=== PATIENT | male | born 2000 | race Caucasian/White ===

== ENCOUNTER 2019-07-01 19:47 | Emergency (ER) | payer BC ==
[2019-07-01] MEDS ORDERED: Aspirin 81 MG Tab.Chew PO ONE (20:18)
[2019-07-01] MEDS ORDERED: Albuterol/Ipratropium 3.0-0.5 MG/3 ML Neb Soln NEB ONE (20:18)
--- NOTE | 2019-07-01 20:24 | EDM.PDOC ---
ED HPI GENERAL MEDICAL PROBLEM - General Chief Complaint: Chest Pain Stated Complaint: LEFT SIDE PAIN/CONGESTION Time Seen by Provider: 07/01/19 19:55 Source of Information: Reports: Patient History Limitations: Reports: No Limitations - History of Present Illness INITIAL COMMENTS - FREE TEXT/NARRATIVE: The patient presents with left sided chest pain. This started about 2 hours ago. He was running a piece of equipment and was sabina around a lot. He says he is also short of breath. It hurts when he takes a deep breath. He has no fever, chills or cough. He has no abdominal pain, nausea or vomiting. He has no history of DVT or PE. He does have a history of asthma and he felt like he was wheezing tonight. Onset: Sudden Duration: Hour(s): (2) Location: Reports: Chest Quality: Reports: Sharp Severity: Moderate Improves with: Reports: Immobilization Worsens with: Reports: Breathing Context: Reports: Trauma (He was working wtih a piece of equipment that was jarring him around) Associated Symptoms: Reports: Chest Pain, Shortness of Breath. Denies: Cough, Fever/Chills, Headaches, Nausea/Vomiting Left Chest Pain Score (Numeric/FACES): 7 - Related Data Allergies Allergy/AdvReac Type Severity Reaction Status Date / Time nut - unspecified Allergy Airway Verified 07/01/19 19:59 Tightness Home Meds: Home Meds Cetirizine [ZyrTEC] 10 mg PO DAILY 07/01/19 [History] Past Medical History - Past Health History Medical/Surgical History: Denies Medical/Surgical History Social & Family History - Tobacco Use Smoking Status *Q: Never Smoker - Recreational Drug Use Recreational Drug Use: No ED ROS GENERAL - Review of Systems Review Of Systems: See Below Constitutional: Reports: No Symptoms HEENT: Reports: No Symptoms Respiratory: Reports: Shortness of Breath Cardiovascular: Reports: Chest Pain Endocrine: Reports: No Symptoms GI/Abdominal: Reports: No Symptoms : Reports: No Symptoms Musculoskeletal: Reports: No Symptoms Skin: Reports: No Symptoms ED EXAM, GENERAL - Physical Exam Exam: See Below Exam Limited By: No Limitations General Appearance: Alert, No Apparent Distress Ears: Normal External Exam Nose: Normal Inspection Head: Atraumatic, Normocephalic Neck: Normal Inspection Respiratory/Chest: No Respiratory Distress, Lungs Clear, Normal Breath Sounds Cardiovascular: Regular Rate, Rhythm, No Edema, No Murmur, Other (Pain upon palpation to the left chest) GI/Abdominal: Soft, Non-Tender, No Organomegaly, No Mass Back Exam: Normal Inspection Extremities: Normal Inspection Neurological: Alert, Oriented, No Motor/Sensory Deficits Course - Vital Signs Last Recorded V/S: Last Vital Signs Temp 98.5 F 07/01/19 19:59 Pulse 63 07/01/19 19:59 Resp 22 H 07/01/19 19:59 BP 143/82 H 07/01/19 19:59 Pulse Ox 100 07/01/19 20:18 - Orders/Labs/Meds Orders: Active Orders 24 hr Category Date Time Status Cardiac Monitoring [RC] . DIRECTED Care 07/01/19 20:17 Active EKG Documentation Completion [RC] STAT Care 07/01/19 20:18 Active RT Aerosol Therapy [RC] ASDIRECTED Care 07/01/19 20:18 Active Chest 2V [CR] Stat Exams 07/01/19 20:18 Taken Labs: Laboratory Tests 07/01/19 07/01/19 07/01/19 Range/Units 20:32 20:32 20:32 WBC 9.23 H (4.23-9.07) K/mm3 RBC 4.98 (4.63-6.08) M/mm3 Hgb 14.4 (13.7-17.5) gm/dl Hct 40.6 (40.1-51.0) % MCV 81.5 (79.0-92.2) fl MCH 28.9 (25.7-32.2) pg MCHC 35.5 (32.2-35.5) g/dl RDW Std Deviation 35.6 (35.1-43.9) fL Plt Count 246 (163-337) K/mm3 MPV 10.8 (9.4-12.3) fl Neut % (Auto) 66.8 (34.0-67.9) % Lymph % (Auto) 20.0 L (21.8-53.1) % Gregg % (Auto) 8.5 (5.3-12.2) % Eos % (Auto) 3.9 (0.8-7.0) Baso % (Auto) 0.7 (0.1-1.2) % Neut # (Auto) 6.17 H (1.78-5.38) K/mm3 Lymph # (Auto) 1.85 (1.32-3.57) K/mm3 Gregg # (Auto) 0.78 (0.30-0.82) K/mm3 Eos # (Auto) 0.36 (0.04-0.54) K/mm3 Baso # (Auto) 0.06 (0.01-0.08) K/mm3 D-Dimer, Quantitative < 0.19 L (0.19-0.50) mg/L Sodium 139 (136-145) mEq/L Potassium 3.8 (3.5-5.1) mEq/L Chloride 104 (98-107) mEq/L Carbon Dioxide 25 (21-32) mEq/L Anion Gap 13.8 (5-15) BUN 16 (7-18) mg/dL Creatinine 1.2 (0.7-1.3) mg/dL Est Cr Clr Drug Dosing 105.45 mL/min Estimated GFR (MDRD) > 60 (>60) mL/min BUN/Creatinine Ratio 13.3 L (14-18) Glucose 90 (74-106) mg/dL Calcium 9.9 (8.5-10.1) mg/dL Total Bilirubin 0.7 (0.2-1.0) mg/dL AST 23 (15-37) U/L ALT 37 (16-63) U/L Alkaline Phosphatase 63 (46-116) U/L Troponin I < 0.017 (0.00-0.056) ng/mL Total Protein 8.1 (6.4-8.2) g/dl Albumin 4.5 (3.4-5.0) g/dl Globulin 3.6 gm/dL Albumin/Globulin Ratio 1.3 (1-2) Meds: Medications Discontinued Medications Generic Name Dose Route Start Last Admin Trade Name Freq PRN Reason Stop Dose Admin Albuterol/Ipratropium 3 ml 07/01/19 20:18 07/01/19 20:42 Duoneb 3.0-0.5 Mg/3 Ml NEB 07/01/19 20:19 3 ml ONETIME ONE Administration Aspirin 324 mg 07/01/19 20:18 07/01/19 20:35 Aspirin PO 07/01/19 20:19 324 mg ONETIME ONE Administration - Re-Assessments/Exams Free Text/Narrative Re-Assessment/Exam: 07/01/19 20:24 I ordered an EKG, CXR, labs and a duoneb. 07/01/19 21:25 His EKG shows a NSR with no acute changes. His CXR looks good. His CBC and CMP look good. His troponin is negative. His D-dimer is negative. He says the duoneb did help some. I feel he does have pleurisy. I will have him take some antiinflammatories like motrin or aleve for the next week. Departure - Departure Time of Disposition: 21:30 Disposition: Home, Self-Care 01 Condition: Good Clinical Impression: Pleurisy Referrals: PCP,Not In Area [Primary Care Provider] - Ceferino Calabrese PA-C [Physician Account Installation Specialist] - 1 Week Forms: ED Department Discharge Additional Instructions: Take motrin or aleve for the pain. Please return if you are worse. - My Orders Last 24 Hours: My Active Orders 07/01/19 20:17 Cardiac Monitoring [RC] . DIRECTED 07/01/19 20:18 EKG Documentation Completion [RC] STAT RT Aerosol Therapy [RC] ASDIRECTED Chest 2V [CR] Stat - Assessment/Plan Last 24 Hours: My Active Orders 07/01/19 20:17 Cardiac Monitoring [RC] . DIRECTED 07/01/19 20:18 EKG Documentation Completion [RC] STAT RT Aerosol Therapy [RC] ASDIRECTED Chest 2V [CR] Stat
--- NOTE | 2019-07-02 08:19 | CR ---
Chest: Two views of the chest were obtained. Comparison: No previous chest x-ray. Heart size and mediastinum are normal. Lungs are clear. Bony structures are unremarkable. Small opacity is seen on the lateral view which appears to be superficial on the patient. Impression: 1. Nothing acute is seen on two-view chest x-ray. Diagnostic code #1
== END 2019-07-01 21:30 | disposition home or self-care (01) ==
LOC: JD.ED 19:47
DX: R09.1 Pleurisy (principal); Z91.018 Allergy to other foods; Z79.899 Other long term (current) drug therapy
CPT/HCPCS: 36415; 71046; 80053; 84484; 85025; 85379; 93005; 94640; 99285; A9270; 93010; 99283; J7620-GY